=== PATIENT | male | born 1945 | race Caucasian/White ===

== ENCOUNTER 2017-11-06 12:22 | Outpatient (CLI) | payer MEDICARE, BC ==
--- NOTE | 2017-11-06 17:06 | MRI Report ---
Procedure Date: 11/06/2017 Accession Number: [id number] / [id number] Procedure: MRI - Lumbar Spine W/O CPT Code: FULL RESULT: EXAM: MRI LUMBAR SPINE WITHOUT CONTRAST. EXAM DATE: 11/06/2017 01:21 PM. CLINICAL HISTORY: Radiculopathy, lumbar region, pain in left foot. COMPARISON: None. TECHNIQUE: Multiplanar, multisequence T1-weighted and fluid-sensitive sequences of the lumbar spine from T11 to S1 without contrast. Other: None. FINDINGS: Alignment: 26 degrees convex left scoliosis centered at L2. 3 mm retrolisthesis at L1 on L2 and L2 on L3. Spinal Canal: The conus terminates at T12-L1. The conus medullaris and cauda equina are unremarkable. Bone Marrow: Five [id number] lumbar vertebral bodies are assumed. Mild superior endplate fracture and L4, asymmetric to the left with mild anterior and left lateral height loss. No bone marrow edema at this site. No acute fracture. Moderate fatty endplate changes at L5-S1. Mild fatty endplate changes at L2-L3. Disk Levels/Facets: Disk desiccation throughout. Moderate to severe disk height loss at L2-L3, asymmetric to the right and L5-S1 asymmetric to the left. T10-T11: Sagittal images only. Minimal disk bulge. Moderate left facet hypertrophy. Minimal central canal stenosis. Moderate left neural foramen stenosis. T11-T12: Sagittal images only. Minimal disk bulge. Mild bilateral facet hypertrophy. Moderate left neural foramen stenosis. T12-L1: Sagittal images only. Mild bilateral facet hypertrophy. No stenosis. L1-L2: Sagittal images only. Minimal disk osteophyte complex. Mild bilateral facet hypertrophy. Mild bilateral neural foramen stenosis. L2-L3: Small bilobed disk osteophyte complex extending into the neural foramen with superimposed small right paracentral and foraminal disk protrusion. Mild bilateral facet and ligamentum flavum hypertrophy. Prominent epidural fat contributes to mild to moderate central canal stenosis. Disk protrusion results in mass effect on the traversing right L3 and L4 nerve roots. Mild bilateral neural foramen stenosis. L3-L4: Small to moderate broad-based disk osteophyte complex extending into the bilateral neural foramen. Severe bilateral facet and ligamentum flavum hypertrophy. Prominent epidural fat contributes to moderate central canal stenosis. Moderate to severe right and moderate left neural foramen stenosis. L4-L5: Small broad-based disk bulge, asymmetric to the left. Severe right and moderate left facet and ligamentum flavum hypertrophy. Prominent epidural fat contributes to mild central canal stenosis. Mild bilateral neural foramen stenosis. L5-S1: Small broad-based disk osteophyte complex, asymmetric to the left. Mild right and moderate left facet and ligamentum flavum hypertrophy. Moderate left neural foramen stenosis. Musculature: Mild fatty atrophy in the posterior paraspinous musculature. No focal muscle edema. Other: The partially visualized retroperitoneum is unremarkable. Degenerative changes at the partially visualized sacral iliac joints, left greater than right. IMPRESSION: 1. Moderate convex left scoliosis centered at L2. 2. Minimal grade 1 retrolisthesis at L1 on L2 and L2 on L3. 3. Moderate to severe degenerative disk and facet changes. 4. Disk osteophyte complex, facet hypertrophy, and prominent epidural fat at L3-L4 result in moderate central canal stenosis. 5. Disk osteophyte complex, right paracentral and foraminal protrusion, facet hypertrophy and prominent epidural fat at L2-L3 result in tfhe-fc-frafubry central canal stenosis. Disk protrusion results in mass effect on the traversing right L3 and L4 nerve roots. 6. Disk osteophyte complex, facet hypertrophy, and prominent epidural fat at L4-L5 result in mild central canal stenosis. 7. Varying degrees of neural foramen stenosis, moderate to severe at L3-L4 on the right. Moderate stenosis at L3-L4 on the left L5-S1 on the left. Comment: The following findings are so common in adults without low back pain that while we report their presence, they must be interpreted with caution and in the context of the clinical situation. (Reference Negrak et al, Spine 2001) Prevalence of findings in patients without low back pain: Disk degeneration (any evidence): 92% Disk desiccation/T2 signal loss: 83% Disk height loss: 56% Disk bulge: 64% Disk protrusion: 32% Annular tear/high intensity zone: 38% RAD[facility]
--- NOTE | 2017-11-08 15:31 | MRI Report ---
Procedure Date: 11/06/2017 Accession Number: [id number] / [id number] Procedure: MRI - Foot LT W/O CPT Code: FULL RESULT: EXAM: LEFT ANKLE/HINDFOOT MRI WITHOUT CONTRAST EXAM DATE: 11/06/2017 02:13 PM. CLINICAL HISTORY: Radiculopathy, lumbar region. Pain in left foot. COMPARISON: None. TECHNIQUE: Multiplanar, multisequence T1-weighted and fluid-sensitive sequences of the ankle/hindfoot without contrast. Other: None. FINDINGS: Bones: No acute fracture. Two old ununited fracture fragments at the anterior and distal aspect of the fibular tip measuring 1.6 cm each in diameter. Old subtle fracture fragments at the tip of the medial malleolus. Mild reactive edema in the medial and lateral aspects distal tibia. Mild bone marrow edema and reactive cysts at the angle of [place] and anterior process of the calcaneus extending to the articular surface with the cuboid. Articular Cartilage: Small regions of deep partial to full-thickness loss anteromedial aspects tibial plafond and medial margin of the talar dome. Ligaments: Old sprain and partial-thickness tearing at the anterior tibiofibular ligament. Posterior talofibular ligament intact. No discernible intact fibers at the anterior talofibular ligament where there are multiple ossific fragments. Posterior talofibular and calcaneofibular ligaments intact. Mild edema and distortion in the superficial and deep bands of the deltoid ligament. Mild thickening of the spring ligament. Anterior Tendons: The tibialis anterior, extensor hallucis longus, and extensor digitorum longus tendons are unremarkable. Medial Tendons: The tibialis posterior, flexor digitorum longus, and flexor hallucis longus tendons are unremarkable. Lateral Tendons: Mild thickening of the peroneus longus tendon with edema and distortion in the central substance of the fibers distal to the peroneal tubercle of the calcaneus. Minimal thickening of the peroneus brevis tendon without discrete tear. Achilles Tendon: Minimal thickening without discrete tear. Musculature: Mild to moderate fatty atrophy throughout the musculature. Subtle edema throughout the musculature. A component of this is likely neurogenic. Other: Small tibiotalar and subtalar joint effusions. 1.8 cm multilobulated ganglion at the lateral margin talonavicular joint. Mild edema in the sinus tarsi. 1.4 cm lobulated ganglion along the medial aspect of the calcaneus. This may abut the neurovascular bundle of the sinus tarsi. Moderate thickening at the central band of the plantar fascia. Mild subcutaneous edema over the medial and lateral malleoli extending over the dorsal and lateral aspect of the midfoot. IMPRESSION: 1. No acute osseous abnormality. 2. 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 3. Sequelae of old medial and lateral ligamentous injury including full-thickness disruption anterior talofibular ligament. 4. Mild peroneus longus tendinopathy with possible subtle intrasubstance tear just distal to the peroneal tubercle. 5. Minimal peroneus brevis tendinopathy. 6. Minimal Achilles tendinopathy. 7. Ywxg-hs-ayqysxcm degenerative change tibiotalar joint with regions of full-thickness cartilage loss at the medial aspect. 8. Small tibiotalar and subtalar joint effusions. [facility] MUSCULOSKELETAL RADIOLOGY SECTION
== END 2017-11-06 12:23 | disposition home or self-care (01) ==
LOC: DI 12:22
PROVIDERS: ATTEND Family Medicine
DX: S82.832K Other fracture of upper and lower end of left fibula, subsequent encounter for closed fracture with nonunion (principal); S93.492A Sprain of other ligament of left ankle, initial encounter; M19.072 Primary osteoarthritis, left ankle and foot; M25.472 Effusion, left ankle; M67.972 Unspecified disorder of synovium and tendon, left ankle and foot
CPT/HCPCS: 72148

== ENCOUNTER 2018-02-18 09:40 | Outpatient (CLI) | payer MEDICARE, BC | END 2018-02-18 09:41 | disposition home or self-care (01) | LOC: LAB 09:40 | PROVIDERS: ATTEND Orthopaedic Surgery | DX: M76.72 Peroneal tendinitis, left leg (principal); S82.62XK Displaced fracture of lateral malleolus of left fibula, subsequent encounter for closed fracture with nonunion; M19.172 Post-traumatic osteoarthritis, left ankle and foot; M25.872 Other specified joint disorders, left ankle and foot | CPT/HCPCS: 87640 ==

== ENCOUNTER 2019-06-25 23:19 | Emergency (ER) | payer MEDICARE, OTHER ==
[2019-06-26 00:37] LABS: BASOPHILS # (AUTO) 0.1 10^3/uL (0.0-0.1); BASOPHILS % (AUTO) 0.9 %; EOSINOPHILS # (AUTO) 0.3 10^3/uL (0.0-0.7); EOSINOPHILS % (AUTO) 3.7 %; HGB - HEMOGLOBIN 14.7 g/dL (14.0-18.0); LYMPHOCYTES # (AUTO) 3.1 10^3/uL (1.5-3.5); LYMPHOCYTES % (AUTO) 39.3 %; MEAN CORPUSCULAR HEMOGLOBIN 30.1 pg (27.0-31.0); MEAN CORPUSCULAR VOLUME 94.3 fL (80.0-94.0); MONOCYTES # (AUTO) 0.7 10^3/uL (0.0-1.0); MONOCYTES % (AUTO) 8.3 %; NEUTROPHILS # (AUTO) 3.7 10^3/uL (1.5-6.6); NEUTROPHILS % (AUTO) 47.5 %; PLT - PLATELET COUNT 210 10^3/uL (130-450); RED BLOOD COUNT 4.88 10^6/uL (4.70-6.10); RED CELL DISTRIBUTION WIDTH 12.7 % (12.0-15.0); WHITE BLOOD COUNT 7.8 x10^3/uL (4.8-10.8)
[2019-06-26 00:42] LABS: INR 2.3 (0.8-1.2); PT - PROTHROMBIN TIME 25.4 secs (9.9-12.6)
[2019-06-26 00:49] LABS: ALBUMIN 3.9 g/dL (3.2-5.5); ALBUMIN/GLOBULIN RATIO 1.6 (1.0-2.2); BILIRUBIN,TOTAL 0.7 mg/dL (0.2-1.0); PARTIAL THROMBOPLASTIN TIME 41.4 secs (24.9-33.3); TOTAL PROTEIN 6.3 g/dL (6.7-8.2)
--- NOTE | 2019-06-26 01:07 | ED Physician Documentation ---
PD HPI HEENT - Stated complaint Stated Complaint: NOSEBLEED - Chief complaint Chief Complaint: Heent - History obtained from History obtained from: Patient - History of Present Illness Timing - onset: Enter time (21:00), Today Timing - details: Abrupt onset Location: Nose Improves: Nothing Similar symptoms before: Has not had sx before Recently seen: Not recently seen - Additional information Additional information: right nare epistaxis, sudden onset, atraumatic, 9 PM tonight at home at rest. on coumadin Review of Systems Nose: reports: Epistaxis. denies: Rhinorrhea / runny nose, Congestion PD PAST MEDICAL HISTORY - Past Medical History Past Medical History: Yes Cardiovascular: Hypertension, High cholesterol, Coronary artery disease, Pulmonary embolism Endocrine/Autoimmune: Type 2 diabetes - Past Surgical History Past Surgical History: Yes Ortho: Rotator cuff repair, Other Cardiovascular: Coronary stent HEENT: Tonsil/Adenoidectomy, Other - Present Medications Home Medications: Ambulatory Orders Medication Instructions Recorded Confirmed Atorvastatin Calcium 40 mg PO DAILY 09/28/17 06/26/19 Cholecalciferol (Vitamin D3) 1 tab PO DAILY 09/28/17 06/26/19 [Vitamin D3] Dulaglutide [Trulicity] 1.5 mg SQ Q7D 09/28/17 06/26/19 Furosemide 40 mg PO DAILY 09/28/17 06/26/19 Insulin Glargine,Hum.rec.anlog 50 unit SUBQ QDBREAKFAST 09/28/17 06/26/19 [Toujeo Solostar] Isosorbide Dinitrate 30 mg PO BID 09/28/17 06/26/19 Metformin HCl [Metformin HCl ER] 2,000 mg PO QDDINNER 09/28/17 06/26/19 Metoprolol Tartrate 50 mg PO DAILY 09/28/17 06/26/19 Omeprazole 20 mg PO DAILY 09/28/17 06/26/19 Insulin Aspart [NovoLOG] 5 - 20 unit SUBQ TIDWM 05/14/18 06/26/19 Warfarin Sodium 5 mg PO DAILY 06/26/19 06/26/19 - Allergies Allergies/Adverse Reactions: Allergies Allergy/AdvReac Type Severity Reaction Status Date / Time codeine Allergy Unknown Verified 06/25/19 23:26 - Social History Does the pt smoke?: No Smoking Status: Never smoker Does the pt drink ETOH?: No Does the pt have substance abuse?: No - Immunizations Immunizations are current?: Yes - POLST Patient has POLST: No PD ED PE NORMAL - Vitals Vital signs reviewed: Yes - General General: Alert and oriented X 3, No acute distress, Well developed/nourished - HEENT HEENT: Pharynx benign PD ED PE EXPANDED - HEENT HEENT: Other (left nare with trace dried blood, no active bleeding. right nare with fresh, small clot, no active bleeding. there is a punctate raised vessel anterior septum suspicious as source of bleeding) Results - Vitals Vitals: Oxygen O2 Source Room air - Labs Labs: Laboratory Tests 06/26/19 06/26/19 06/26/19 00:31 00:31 00:31 WBC 7.8 RBC 4.88 Hgb 14.7 Hct 46.0 MCV 94.3 H MCH 30.1 MCHC 32.0 RDW 12.7 Plt Count 210 MPV 10.0 Neut # (Auto) 3.7 Lymph # (Auto) 3.1 [place] # (Auto) 0.7 Eos # (Auto) 0.3 Baso # (Auto) 0.1 Absolute Nucleated RBC 0.00 Nucleated RBC % 0.0 PT 25.4 H INR 2.3 H APTT 41.4 H Sodium 137 Potassium 3.6 Chloride 105 Carbon Dioxide 24 Anion Gap 8.0 BUN 14 Creatinine 1.0 Estimated GFR (MDRD) 73 L Glucose 338 H Calcium 9.0 Total Bilirubin 0.7 AST 16 ALT 13 Alkaline Phosphatase 76 Total Protein 6.3 L Albumin 3.9 Globulin 2.4 Albumin/Globulin Ratio 1.6 Lipase 40 Procedures - Epistaxis Site: Right Preparation: Clots removed, Afrin, Lidocaine, Clamp / pressure applied Treatment: Silver Nitrate, Anterior rhinorocket Other: Observed - no bleeding, Pt tolerated well PD MEDICAL DECISION MAKING - ED course Complexity details: considered differential, d/w patient ED course: no active bleeding, but likely source noted right nare septum. given that he is on coumadin and had already tried direct pressure prior to arrival without lasting hemostasis, I recommended cautery and patient agrees. unfortunately, cautery immediately caused vessel to rebleed and further attempts did not achieve hemostasis. packed with 4.5c rhinorocket with good hemostasis Departure - Departure Disposition: 01 Home, Self Care Clinical Impression: Epistaxis Condition: Good Instructions: ED Nosebleed, ED Nasal Packing Anterior Removable Follow-Up: Thomas Roger DO [Primary Care Provider] - Discharge Date/Time: 06/26/19 04:20
[2019-06-26] MEDS ORDERED: LIDOCAINE VISCOUS 2% 15 ML UDC MM STA (01:26)
[2019-06-26] MEDS ORDERED: OXYMETAZOLINE HCL 100 SPRAYS BOTTLE NAS STA (01:27)
[2019-06-26 03:55] VITALS: BP 165/78
== END 2019-06-26 04:20 | disposition home or self-care (01) ==
LOC: ED 23:19
DX: R04.0 Epistaxis (principal); I10 Essential (primary) hypertension; E11.9 Type 2 diabetes mellitus without complications; E78.00 Pure hypercholesterolemia, unspecified; I25.10 Atherosclerotic heart disease of native coronary artery without angina pectoris; Z86.711 Personal history of pulmonary embolism; Z95.5 Presence of coronary angioplasty implant and graft
CPT/HCPCS: 30901; 36415; 80053; 83690; 85025; 85610; 85730; 99283; A9270

== ENCOUNTER 2021-05-22 08:00 | Outpatient (CLI) | payer MEDICARE, OTHER ==
--- NOTE | 2021-05-22 18:15 | XRAY Report ---
PROCEDURE: Elbow 3 View LT INDICATIONS: OLECRANON BURSITIS TECHNIQUE: 3 views of the elbow were acquired. COMPARISON: None FINDINGS: Bones: No fractures or dislocations. No suspicious bony lesions. No bony erosive changes. Soft tissues: No elbow joint effusion. No suspicious soft tissue calcifications. Dorsal elbow soft tissue swelling is seen which may represent olecranon bursitis. IMPRESSION: No elbow fracture or dislocation. No joint effusion. Dorsal soft tissue swelling over olecranon, olec ranon bursitis is suspected. No bony erosive changes. Reviewed by: Edmund Wise MD on 05/22/2021 6:13 PM PST Approved by: Edmund Wise MD on 05/22/2021 6:13 PM [facility] Station ID: [id number]
== END 2021-05-22 23:59 | disposition home or self-care (01) ==
LOC: DI.S 08:00
PROVIDERS: ATTEND Emergency Medicine
DX: R93.6 Abnormal findings on diagnostic imaging of limbs (principal); R93.89 Abnormal findings on diagnostic imaging of other specified body structures

== ENCOUNTER 2022-11-28 12:53 | Emergency (ER) | payer MEDICARE, OTHER ==
[2022-11-28 13:08] VITALS: O2SAT 95
[2022-11-28 13:24] LABS: BASOPHILS # (AUTO) 0.1 10^3/uL (0.0-0.1); BASOPHILS % (AUTO) 0.7 %; EOSINOPHILS # (AUTO) 0.1 10^3/uL (0.0-0.7); EOSINOPHILS % (AUTO) 1.4 %; HCT - HEMATOCRIT 44.9 % (42.0-52.0); HGB - HEMOGLOBIN 14.8 g/dL (14.0-18.0); LYMPHOCYTES # (AUTO) 1.9 10^3/uL (1.5-3.5); MEAN CORPUSCULAR HEMOGLOBIN 31.4 pg (27.0-31.0); MEAN CORPUSCULAR VOLUME 95.1 fL (80.0-94.0); MEAN PLATELET VOLUME 9.9 fL (7.4-11.4); MONOCYTES # (AUTO) 1.1 10^3/uL (0.0-1.0); MONOCYTES % (AUTO) 11.2 %; NEUTROPHILS # (AUTO) 6.7 10^3/uL (1.5-6.6); NEUTROPHILS % (AUTO) 67.5 %; PLT - PLATELET COUNT 250 10^3/uL (130-450); RED BLOOD COUNT 4.72 10^6/uL (4.70-6.10); RED CELL DISTRIBUTION WIDTH 12.1 % (12.0-15.0); WHITE BLOOD COUNT 9.9 x10^3/uL (4.8-10.8)
[2022-11-28 13:32] LABS: INR 1.2 (0.8-1.2); PT - PROTHROMBIN TIME 13.2 secs (9.9-12.6)
[2022-11-28] MEDS ORDERED: SODIUM CHLORIDE 0.9% 1,000 ML IV STA (13:42)
--- NOTE | 2022-11-28 13:43 | XRAY Report ---
PROCEDURE: Chest 2 View X-Ray INDICATIONS: cough TECHNIQUE: 2 views of the chest were acquired. COMPARISON: None. FINDINGS: Surgical changes and devices: None. Lungs and pleura: No pleural effusions or pneumothorax. Lungs are slightly abnormal with a mild int erstitial prominence. No definite pneumonia found.. Mediastinum: Mediastinal contours appear normal. Heart size is normal. Bones and chest wall: No suspicious bony lesions. Overlying soft tissues appear unremarkable. Moder ate convex rightward scoliosis centered at the middle third of the thoracic spine, which appears assistant media buyer italo. IMPRESSION: No acute cardiopulmonary process. Mild chronic interstitial prominence. Reviewed by: Peterson Yanez MD on 11/28/2022 1:41 PM PDT Approved by: Peterson Yanez MD on 11/28/2022 1:41 PM PDT Station ID: [id number]
--- NOTE | 2022-11-28 13:43 | ED Physician Documentation ---
History of Present Illness - Stated complaint Stated Complaint: COLD/FEVER - Chief complaint Chief Complaint: General - History obtained from History obtained from: Patient, Family - Additonal information Additional information: 77-year-old gentleman with type 2 diabetes, coronary disease with multiple stents, history of pulmonary emboli on Eliquis presents with a URI for the last week. Its associated with prominent green nasal drainage and sinus pain, productive cough, and redness and drainage from the right eye. Multiple sick contacts in the family. Low-grade fever to 100 yesterday. PD PAST MEDICAL HISTORY - Past Medical History Cardiovascular: Hypertension, High cholesterol, Coronary artery disease, Pulmonary embolism Endocrine/Autoimmune: Type 2 diabetes - Past Surgical History Past Surgical History: Yes Ortho: Rotator cuff repair, Other Cardiovascular: Coronary stent HEENT: Tonsil/Adenoidectomy, Other - Present Medications Home Medications: Ambulatory Orders Medication Instructions Recorded Confirmed Atorvastatin Calcium 40 mg PO DAILY 09/28/17 06/26/19 Cholecalciferol (Vitamin D3) 1 tab PO DAILY 09/28/17 06/26/19 [Vitamin D3] Dulaglutide [Trulicity] 1.5 mg SQ Q7D 09/28/17 06/26/19 Furosemide 40 mg PO DAILY 09/28/17 06/26/19 Insulin Glargine,Hum.rec.anlog 50 unit SUBQ QDBREAKFAST 09/28/17 06/26/19 [Touerna Solostar] Isosorbide Dinitrate 30 mg PO BID 09/28/17 06/26/19 Metformin HCl [Metformin HCl ER] 2,000 mg PO QDDINNER 09/28/17 06/26/19 Metoprolol Tartrate 50 mg PO DAILY 09/28/17 06/26/19 Omeprazole 20 mg PO DAILY 09/28/17 06/26/19 Insulin Aspart [NovoLOG] 5 - 20 unit SUBQ TIDWM 05/14/18 06/26/19 Warfarin Sodium 5 mg PO DAILY 06/26/19 06/26/19 Amox/Clav 875/125 [Augmentin] 1 each PO Q12H #20 tablet 11/28/22 Erythromycin Base [Erythromycin 1 appful OP 5XD 7 Days #1 gm 11/28/22 Ophthalmic Ointment] - Allergies Allergies/Adverse Reactions: Allergies Allergy/AdvReac Type Severity Reaction Status Date / Time codeine Allergy Unknown Verified 06/25/19 23:26 - Social History Does the pt smoke?: No Smoking Status: Never smoker Does the pt drink ETOH?: No Does the pt have substance abuse?: No - Immunizations Immunizations are current?: Yes - POLST Patient has POLST: No PD ED PE NORMAL - Vitals Vital signs reviewed: Yes - General General: Alert and oriented X 3, No acute distress - HEENT HEENT: PERRL, EOMI, Other (Mild purulent conjunctivitis of the right eye, TMs and oropharynx normal status post PPP surgery) - Neck Neck: Supple, no meningeal sign, No bony TTP - Cardiac Cardiac: RRR, No murmur - Respiratory Respiratory: No respiratory distress, Clear bilaterally - Abdomen Abdomen: Non tender - Derm Derm: Normal color, Warm and dry - Neuro Neuro: Alert and oriented X 3, Normal speech Results - Vitals Vitals: Vital Signs - 24 hr 11/28/22 11/28/22 12:57 13:56 Temperature 36.5 C Heart Rate 64 67 Respiratory 20 20 Rate Blood Pressure 187/76 H 161/140 H O2 Saturation 95 95 Oxygen O2 Source Room air - Labs Labs: Laboratory Tests 11/28/22 11/28/22 11/28/22 13:13 13:13 13:13 WBC 9.9 RBC 4.72 Hgb 14.8 Hct 44.9 MCV 95.1 H MCH 31.4 H MCHC 33.0 RDW 12.1 Plt Count 250 MPV 9.9 Neut # (Auto) 6.7 H Lymph # (Auto) 1.9 [place] # (Auto) 1.1 H Eos # (Auto) 0.1 Baso # (Auto) 0.1 Absolute Nucleated RBC 0.00 Nucleated RBC % 0.0 PT 13.2 H INR 1.2 Sodium 137 Potassium 4.4 Chloride 102 Carbon Dioxide 30 Anion Gap 5.0 L BUN 12 Creatinine 0.9 Estimated GFR (MDRD) 82 L Glucose 190 H Calcium 9.6 Nasal Adenovirus (PCR) Nasal B. parapertussis DNA (PCR) Nasal Coronavir 229E PCR Nasal Coronavir HKU1 PCR Nasal Coronavir NL63 PCR Nasal Coronavir OC43 PCR Nasal Enterovir/Rhinovir PCR Nasal Influenza B PCR Nasal Influenza A PCR Nasal Parainfluen 1 PCR Nasal Parainfluen 2 PCR Nasal Parainfluen 3 PCR Nasal Parainfluen 4 PCR Nasal RSV (PCR) Nasal B.pertussis DNA PCR Nasal C.pneumoniae (PCR) Tim Human Metapneumo PCR Nasal M.pneumoniae (PCR) Nasal SARS-CoV-2 (PCR) 11/28/22 13:15 WBC RBC Hgb Hct MCV MCH MCHC RDW Plt Count MPV Neut # (Auto) Lymph # (Auto) [place] # (Auto) Eos # (Auto) Baso # (Auto) Absolute Nucleated RBC Nucleated RBC % PT INR Sodium Potassium Chloride Carbon Dioxide Anion Gap BUN Creatinine Estimated GFR (MDRD) Glucose Calcium Nasal Adenovirus (PCR) NOT DETECTED Nasal B. parapertussis DNA (PCR) NOT DETECTED Nasal Coronavir 229E PCR NOT DETECTED Nasal Coronavir HKU1 PCR NOT DETECTED Nasal Coronavir NL63 PCR NOT DETECTED Nasal Coronavir OC43 PCR NOT DETECTED Nasal Enterovir/Rhinovir PCR NOT DETECTED Nasal Influenza B PCR NOT DETECTED Nasal Influenza A PCR NOT DETECTED Nasal Parainfluen 1 PCR NOT DETECTED Nasal Parainfluen 2 PCR NOT DETECTED Nasal Parainfluen 3 PCR NOT DETECTED Nasal Parainfluen 4 PCR NOT DETECTED Nasal RSV (PCR) NOT DETECTED Nasal B.pertussis DNA PCR NOT DETECTED Nasal C.pneumoniae (PCR) NOT DETECTED Tim Human Metapneumo PCR NOT DETECTED Nasal M.pneumoniae (PCR) NOT DETECTED Nasal SARS-CoV-2 (PCR) NOT DETECTED - Rads (name of study) 2 view chest x-ray demonstrates mild chronic interstitial prominence without acute disease. Relevant Findings:: Final report received, EMP independent interpretation of test PD Medical Decision Making - ED course ED course: 77-year-old gentleman with what sounds like prominently of viral illness but worsening with multiple comorbidities. CBC showing high normal white count with mild left shift. INR normal. BMP normal save for hyperglycemia. Given age and comorbidities seems reasonable to treat with antibiotics for sinusitis/conjunctivitis. He requested and received 1 L of IV fluids. Departure - Departure Disposition: 01 Home, Self Care Clinical Impression: Sinusitis Qualifiers: Sinusitis location: maxillary Chronicity: acute Recurrence: not specified as recurrent Qualified Code(s): J01.00 - Acute maxillary sinusitis, unspecified Conjunctivitis Qualifiers: Conjunctivitis type: acute Acute conjunctivitis type: unspecified Laterality: right Qualified Code(s): H10.31 - Unspecified acute conjunctivitis, right eye Condition: Good Record reviewed to determine appropriate education?: Yes Instructions: ED Sinusitis Abx Tx Prescriptions: Amox/Clav 875/125 [Augmentin] 1 each PO Q12H #20 tablet Erythromycin Base [Erythromycin Ophthalmic Ointment] 1 appful OP 5XD 7 Days #1 gm Comments: I sent your prescriptions electronically to [facility] in [place]. Follow-up with your doctor after the weekend if not improving, return for new or worsening symptoms.
[2022-11-28 13:57] VITALS: BP 161/140
[2022-11-28 14:00] LABS: CALCIUM 9.6 mg/dL (8.5-10.3); CREATININE 0.9 mg/dL (0.6-1.3); POTASSIUM 4.4 mmol/L (3.5-4.5)
[2022-11-28 14:08] LABS: B. PARAPERTUSSIS- RESP PCR PAN NOT DETECTED; B. PERTUSSIS- RESP PCR PANEL NOT DETECTED; C. PNEUMONIAE- RESP PCR PANEL NOT DETECTED; CORONAVIRUS 229E-RESP PCR NOT DETECTED; CORONAVIRUS HKU1-RESP PCR NOT DETECTED; CORONAVIRUS NL63-RESP PCR NOT DETECTED; CORONAVIRUS OC43-RESP PCR NOT DETECTED; HUMAN METAPNEUMOVIRUS NOT DETECTED; INFLUENZA A- RESP PCR PANEL NOT DETECTED; INFLUENZA B - RESP PCR PANEL NOT DETECTED; M. PNEUMONIAE- RESP PCR PANEL NOT DETECTED; PARAINFLUENZA VIRUS 1 NOT DETECTED; PARAINFLUENZA VIRUS 2 NOT DETECTED; PARAINFLUENZA VIRUS 3 NOT DETECTED; PARAINFLUENZA VIRUS 4 NOT DETECTED; RHINOVIRUS/ENTEROVIRUS NOT DETECTED; RSV- RESP PCR PANEL NOT DETECTED; SARS-CoV-2 -RESP PCR PANEL NOT DETECTED
== END 2022-11-28 14:57 | disposition home or self-care (01) ==
LOC: ED 12:53
DX: J01.00 Acute maxillary sinusitis, unspecified (principal); H10.31 Unspecified acute conjunctivitis, right eye; I10 Essential (primary) hypertension; Z86.711 Personal history of pulmonary embolism; Z79.01 Long term (current) use of anticoagulants
CPT/HCPCS: 36415; 80048; 85025; 85610; 87633; 99284

== ENCOUNTER 2022-12-14 16:35 | Emergency (ER) | payer MEDICARE, OTHER ==
--- NOTE | 2022-12-14 17:00 | ED Physician Documentation ---
PD HPI URI - Stated complaint Stated Complaint: C+ SOA/DIZZY - Chief complaint Chief Complaint: Resp - History obtained from History obtained from: Patient - History of Present Illness Timing - onset: How many days ago (2) Timing duration: Days (2-3) Timing details: Abrupt onset, Still present Associated symptoms: Fever, Chills, Nasal congestion, Dry cough, Dyspnea. No: NVD, Bilateral edema Contributing factors: No: Sick contact (was not aware of being around sick folk. Tested himself for COVID this morning and was positive. His is starting sick the past day as well, and has COVID.) Worsened by: Activity (more dyspnea with activity.) Similar symptoms before: Has not had sx before Recently seen: Not recently seen Review of Systems Constitutional: reports: Fever, Chills, Myalgias Nose: reports: Congestion Throat: reports: Sore throat Cardiac: denies: Chest pain / pressure, Palpitations, Pedal edema Respiratory: reports: Dyspnea, Cough GI: denies: Abdominal Pain, Vomiting, Diarrhea Skin: denies: Rash Neurologic: denies: Altered mental status, Headache PD PAST MEDICAL HISTORY - Past Medical History Cardiovascular: Hypertension, High cholesterol, Coronary artery disease, Pulmonary embolism Endocrine/Autoimmune: Type 2 diabetes - Past Surgical History Past Surgical History: Yes Ortho: Rotator cuff repair, Other Cardiovascular: Coronary stent HEENT: Tonsil/Adenoidectomy, Other - Present Medications Home Medications: Ambulatory Orders Medication Instructions Recorded Confirmed Atorvastatin Calcium 40 mg PO DAILY 09/28/17 06/26/19 Cholecalciferol (Vitamin D3) 1 tab PO DAILY 09/28/17 06/26/19 [Vitamin D3] Dulaglutide [Trulicity] 1.5 mg SQ Q7D 09/28/17 06/26/19 Furosemide 40 mg PO DAILY 09/28/17 06/26/19 Insulin Glargine,Hum.rec.anlog 50 unit SUBQ QDBREAKFAST 09/28/17 06/26/19 [Clarissa Todd] Isosorbide Dinitrate 30 mg PO BID 09/28/17 06/26/19 Metformin HCl [Metformin HCl ER] 2,000 mg PO QDDINNER 09/28/17 06/26/19 Metoprolol Tartrate 50 mg PO DAILY 06/11/18 03/08/20 Omeprazole 20 mg PO DAILY 09/28/17 06/26/19 Insulin Aspart [NovoLOG] 5 - 20 unit SUBQ TIDWM 05/14/18 06/26/19 Warfarin Sodium 5 mg PO DAILY 06/26/19 06/26/19 Amox/Clav 875/125 [Augmentin] 1 each PO Q12H #20 tablet 11/28/22 Erythromycin Base [Erythromycin 1 appful OP 5XD 7 Days #1 gm 11/28/22 Ophthalmic Ointment] - Allergies Allergies/Adverse Reactions: Allergies Allergy/AdvReac Type Severity Reaction Status Date / Time codeine Allergy Unknown Verified 12/14/22 16:46 - Social History Does the pt smoke?: No Smoking Status: Never smoker Does the pt drink ETOH?: No Does the pt have substance abuse?: No - Immunizations Immunizations are current?: Yes - POLST Patient has POLST: No PD ED PE NORMAL - Vitals Vital signs reviewed: Yes - General General: Alert and oriented X 3, No acute distress, Well developed/nourished - HEENT HEENT: Ears normal, Moist mucous membranes, Pharynx benign - Neck Neck: Supple, no meningeal sign, No adenopathy - Cardiac Cardiac: RRR, No murmur - Respiratory Respiratory: No: Clear bilaterally (some exp wheezing centrally, but no coarse sounds. ) - Abdomen Abdomen: Soft, Non tender - Extremities Extremities: No edema, No calf tenderness / cord - Neuro Neuro: Alert and oriented X 3, No motor deficit, No sensory deficit Results - Vitals Vitals: Vital Signs - 24 hr 12/14/22 12/14/22 16:46 17:55 Temperature 36.8 C 36.6 C Heart Rate 64 62 Respiratory 20 18 Rate Blood Pressure 194/69 H 150/70 H O2 Saturation 95 96 Oxygen O2 Source Room air PD Medical Decision Making - ED course Complexity details: considered differential (URI symptoms and tested at home positive for COVID. Requests Paxlovid. Has albuterol MDI from prior URI. His med list looks like just the atorvastatin needs holding. ), d/w patient ED course: comorbidities of CAD with stents, last about 4 months ago. Has no other stenoses greater than 50% per pt/. Has not had anginal symptoms. No edema/CHF. Does not have undelrying lung disease. Diabetic with good control. CUrrent CGM reading is 132 in ER. Sats are 95%. He is good for outpt treatment. Departure - Departure Disposition: 01 Home, Self Care Clinical Impression: Dyspnea, COVID-19 Condition: Stable Record reviewed to determine appropriate education?: Yes Follow-Up: Thomas Roger DO [Primary Care Provider] - Comments: Takes the Paxlovid twice daily as directed. It is 3 antiviral tablets per dose twice daily for 5 days. Hold your atorvastatin for 10 days. Your other medication should be okay to continue. Stay well-hydrated. You can use the albuterol inhaler you have at home 2 puffs 4 times daily to help with decreased cough and improved breathing. Return if worsening trouble breathing, chest pain, general edema or other concerns. Tylenol if needed for fevers or pains. Forms: PCP List Discharge Date/Time: 12/14/22 17:55
[2022-12-14] MEDS ORDERED: NIRMATRELVIR/RITONAVIR PREPACK PO STA (17:31)
[2022-12-14 18:01] VITALS: BP 150/70; O2SAT 96
== END 2022-12-14 17:55 | disposition home or self-care (01) ==
LOC: ED 16:35
DX: U07.1 COVID-19 (principal); R06.09 Other forms of dyspnea; I10 Essential (primary) hypertension; E11.9 Type 2 diabetes mellitus without complications; Z79.4 Long term (current) use of insulin
CPT/HCPCS: 99282; 99283; J3490

== ENCOUNTER 2023-01-05 08:45 | Outpatient (CLI) | payer MEDICARE, OTHER | END 2023-01-05 20:00 | disposition critical access hospital (66) | LOC: EMS 08:45 | DX: R20.0 Anesthesia of skin (principal) | CPT/HCPCS: A0425; A0429 ==

== ENCOUNTER 2023-01-05 08:58 | Emergency (ER) | payer MEDICARE, OTHER ==
--- NOTE | 2023-01-05 09:22 | ED Physician Documentation ---
PD HPI FOCAL NEURO - Stated complaint Stated Complaint: R SIDED FACIAL NUMBNESS - Chief complaint Chief Complaint: Neuro - History obtained from History obtained from: Patient, Family (spouse) - History of Present Illness Timing - onset: Today (got up from bed and was in bathroom and noted feeling of numbness right face and arm. Not leg. No weakness. Able to manipulte brushing teeth, walking. No noted fumbling nor gait problem. Talked with his and when it did not improve after an hour or so, came to ER. It is improving enroute here.) Timing - duration: Hours Timing - details: Now resolved (was improving enroute to ER and is resolved in arm and mostly in face on arrival. Soon after my eval, he states the face is normal as well.), Other (unknown onset time. Was not present last evening. Noted symptoms upon awakening. He could not say of numbness present upon awakening.) Severity of deficit: Mild Weakness: No: Face, Arm, Leg Numbness: Face, Arm, Hand, Right. No: Leg, Foot Associated symptoms: No: Headache, Nausea / vomiting, Fever Contributing factors: positive: Anticoagulated. negative: Vascular dz Baseline status: positive: A&OX3, ambulatory, indep Similar symptoms before: Has not had sx before Review of Systems Constitutional: denies: Fever, Chills, Myalgias Nose: denies: Rhinorrhea / runny nose, Congestion Throat: denies: Sore throat Cardiac: denies: Chest pain / pressure Respiratory: denies: Cough GI: denies: Abdominal Pain, Nausea, Vomiting, Diarrhea Skin: denies: Rash, Lesions Musculoskeletal: denies: Neck pain, Back pain Neurologic: reports: Numbness. denies: Focal weakness, Near syncope, Altered mental status PD PAST MEDICAL HISTORY - Past Medical History Cardiovascular: Hypertension, High cholesterol, Coronary artery disease, Pulmonary embolism Endocrine/Autoimmune: Type 2 diabetes - Past Surgical History Past Surgical History: Yes Ortho: Rotator cuff repair, Other Cardiovascular: Coronary stent HEENT: Tonsil/Adenoidectomy, Other - Present Medications Home Medications: Ambulatory Orders Medication Instructions Recorded Confirmed Atorvastatin Calcium 40 mg PO DAILY 09/28/17 01/05/23 Insulin Glargine,Hum.rec.anlog 50 unit SUBQ QDBREAKFAST 09/28/17 01/05/23 [Clarissa Todd] Metformin HCl [Metformin HCl ER] 2,000 mg PO QDDINNER 09/28/17 01/05/23 Insulin Aspart [NovoLOG] 5 - 20 unit SUBQ TIDWM 05/14/18 01/05/23 Apixaban [Eliquis] 2.5 mg PO DAILY 01/05/23 01/05/23 Clopidogrel [Plavix] 75 mg PO ONCE 01/05/23 01/05/23 Valsartan 160 mg PO DAILY 01/05/23 01/05/23 - Allergies Allergies/Adverse Reactions: Allergies Allergy/AdvReac Type Severity Reaction Status Date / Time codeine Allergy Unknown Verified 12/14/22 16:46 - Social History Does the pt smoke?: No Smoking Status: Never smoker Does the pt drink ETOH?: No Does the pt have substance abuse?: No - Immunizations Immunizations are current?: Yes - POLST Patient has POLST: No PD ED PE NORMAL - Vitals Vital signs reviewed: Yes - General General: Alert and oriented X 3, No acute distress, Well developed/nourished - HEENT HEENT: Atraumatic, PERRL, EOMI, Pharynx benign - Neck Neck: Supple, no meningeal sign, No adenopathy, No bruit - Cardiac Cardiac: No murmur. No: RRR (regular but bradycardic which he says has been true since noted at age 14. Has supervisor pipeline. ) - Respiratory Respiratory: Clear bilaterally - Abdomen Abdomen: Soft, Non tender - Derm Derm: Normal color, Warm and dry - Extremities Extremities: Normal ROM s pain, No edema, No calf tenderness / cord - Neuro Neuro: Alert and oriented X 3, barn hand 2-12 intact, No motor deficit, No sensory deficit, Normal speech, Other Eye Opening: Spontaneous Motor: Obeys Commands Verbal: Oriented GCS Score: 15 NIHSS - Level of Consciousness Level of consciousness: (0) Alert, Keenly responsive LOC Questions: (0) Answers both Q's correct LOC Commands: (0) Performs both correctly - Gaze Best Gaze: (0) Normal - Visual Visual: (0) No loss - Facial Palsy Facial Palsy: (0) Normal, symmetrical movement - Motor Arms (both separate) Motor Arm (right): (0) No drift Motor Arm (left): (0) No drift - Motor Legs (both separate) Motor Leg (right): (0) No drift Motor Leg (left): (0) No drift - Limb Ataxia Limb Ataxia: (0) Absent - Sensory Sensory: (0) Normal - Best Language Best Language: (0) No aphasia - Dysarthria Dysarthria: (0) Normal - Extinction and Inattention (formally neg Extinction and inattention: (0) No abnormality - Total Score/Results Total Score/Result: 0 Results - Vitals Vitals: Oxygen O2 Source Room air - Labs Labs: Laboratory Tests 01/05/23 01/05/23 01/05/23 10:11 10:11 10:11 WBC 7.2 RBC 4.63 L Hgb 14.6 Hct 44.6 MCV 96.3 H MCH 31.5 H MCHC 32.7 RDW 12.6 Plt Count 210 MPV 9.5 Neut # (Auto) 3.8 Lymph # (Auto) 2.2 Haines # (Auto) 0.6 Eos # (Auto) 0.5 Baso # (Auto) 0.1 Absolute Nucleated RBC 0.00 Nucleated RBC % 0.0 ESR 7 PT 12.9 H INR 1.2 Sodium Potassium Chloride Carbon Dioxide Anion Gap BUN Creatinine Estimated GFR (MDRD) Glucose Calcium Magnesium Total Bilirubin AST ALT Alkaline Phosphatase C-Reactive Protein Total Protein Albumin Globulin Albumin/Globulin Ratio Lipase 01/05/23 10:11 WBC RBC Hgb Hct MCV MCH MCHC RDW Plt Count MPV Neut # (Auto) Lymph # (Auto) Haines # (Auto) Eos # (Auto) Baso # (Auto) Absolute Nucleated RBC Nucleated RBC % ESR PT INR Sodium 141 Potassium 4.4 Chloride 106 Carbon Dioxide 31 Anion Gap 4.0 L BUN 13 Creatinine 1.0 Estimated GFR (MDRD) 72 L Glucose 193 H Calcium 9.4 Magnesium 1.7 Total Bilirubin 0.8 AST 13 ALT 10 Alkaline Phosphatase 70 C-Reactive Protein 0.6 Total Protein 6.7 Albumin 4.0 Globulin 2.7 Albumin/Globulin Ratio 1.5 Lipase 22 - Rads (name of study) head CT Relevant Findings:: Prelim report reviewed (no acute process. ), EMP independent interpretation of test brain MRI Relevant Findings:: Prelim report reviewed (no acute process. Small vessel ischemic changes chronic. ), EMP independent interpretation of test PD Medical Decision Making - ED course Complexity details: considered differential (just numbness without weakness right face and arm. Presume central cause. COuld also consider vasculitis. Labs are good however with normal ESR/CRP. Normal electrolyes. Head CT and MRI wihtout acute stroke. At this point will call it TIA. He is on plavix and DOAC, so no meds added. ), d/w patient, d/w family () Departure - Departure Disposition: 01 Home, Self Care Clinical Impression: Right arm and right face tingling Condition: Stable Record reviewed to determine appropriate education?: Yes Instructions: ED Transient Ischemic Attack Comments: Your basic blood tests are appear normal here. Your heart rate is slightly low in the upper 40s to 50s but your blood pressure is good. Your CT scan of the head and brain MRI did not show any acute abnormalities. No signs of bleeding, stroke, tumors, swelling. At this point presumption with your symptoms would be a TIA. You are already on antiplatelet agent clopidogrel and anticoagulant. Continue with those medications. Stay adequately hydrated. Continue your other usual medicines. Follow-up with your primary care and you could also update your supervisor pipeline. I think staying on the current medicines as main recommendation. Forms: PCP List Discharge Date/Time: 01/05/23 13:42
--- NOTE | 2023-01-05 10:05 | CT Report ---
PROCEDURE: HEAD WO INDICATIONS: right face/arm numbness this morning TECHNIQUE: Noncontrast 4.5 mm thick angled axial sections acquired from the foramen magnum to the vertex. For r adiation dose reduction, the following was used: automated exposure control, adjustment of mA and/or kV according to patient size. COMPARISON: T FINDINGS: Image quality: Excellent. CSF spaces: Basal cisterns are patent. No extra-axial fluid collections. Ventricles are normal in size and shape. Brain: No midline shift. No intracranial masses or hemorrhage. Archer-white matter interface is norm al. Subcortical and periventricular hypodensities are consistent with microvascular ischemic disease and age-related cerebral volume loss. Skull and face: Calvarium and visualized facial bones are intact, without suspicious lesions. Sinuses: Visualized sinuses and mastoids are clear. IMPRESSION: 1. No acute intracranial abnormality. 2. Microvascular ischemic disease and age-related cerebral volume loss. Reviewed by: Tucker Ricks on 01/05/2023 10:04 AM PDT Approved by: Tucker Ricks on 01/05/2023 10:04 AM PDT Station ID: [id number]
[2023-01-05 10:20] LABS: BASOPHILS # (AUTO) 0.1 10^3/uL (0.0-0.1); BASOPHILS % (AUTO) 0.8 %; EOSINOPHILS # (AUTO) 0.5 10^3/uL (0.0-0.7); EOSINOPHILS % (AUTO) 6.3 %; HCT - HEMATOCRIT 44.6 % (42.0-52.0); HGB - HEMOGLOBIN 14.6 g/dL (14.0-18.0); LYMPHOCYTES # (AUTO) 2.2 10^3/uL (1.5-3.5); LYMPHOCYTES % (AUTO) 30.8 %; MEAN CORPUSCULAR HEMOGLOBIN 31.5 pg (27.0-31.0); MEAN CORPUSCULAR HGB CONC 32.7 g/dL (32.0-36.0); MEAN CORPUSCULAR VOLUME 96.3 fL (80.0-94.0); MEAN PLATELET VOLUME 9.5 fL (7.4-11.4); MONOCYTES # (AUTO) 0.6 10^3/uL (0.0-1.0); MONOCYTES % (AUTO) 8.8 %; NEUTROPHILS # (AUTO) 3.8 10^3/uL (1.5-6.6); PLT - PLATELET COUNT 210 10^3/uL (130-450); RED BLOOD COUNT 4.63 10^6/uL (4.70-6.10); RED CELL DISTRIBUTION WIDTH 12.6 % (12.0-15.0); WHITE BLOOD COUNT 7.2 x10^3/uL (4.8-10.8)
[2023-01-05 10:29] LABS: INR 1.2 (0.8-1.2); PT - PROTHROMBIN TIME 12.9 secs (9.9-12.6)
[2023-01-05 10:33] LABS: ALBUMIN/GLOBULIN RATIO 1.5 (1.0-2.2); BILIRUBIN,TOTAL 0.8 mg/dL (0.2-1.0); CALCIUM 9.4 mg/dL (8.5-10.3); CRP - C-REACTIVE PROTEIN 0.6 mg/dL (<0.5); MAGNESIUM 1.7 mg/dL (1.7-2.3); POTASSIUM 4.4 mmol/L (3.5-4.5); TOTAL PROTEIN 6.7 g/dL (6.4-8.9)
[2023-01-05 12:38] VITALS: BP 173/72; O2SAT 98
--- NOTE | 2023-01-05 12:43 | MRI Report ---
PROCEDURE: BRAIN WO INDICATIONS: right face and arm numbness onset this morning TECHNIQUE: Noncontrast axial T1 spin echo, axial T2 fast spin echo, sagittal and axial FLAIR, coronal T2 fast sp in echo, axial gradient echo, axial diffusion and ADC through the brain. COMPARISON: None. FINDINGS: Image quality: Excellent. CSF Spaces: Basal cisterns are patent. No extra-axial fluid collections. Ventricles are normal in size and shape. Brain: No intracranial masses or hemorrhage. Archer/white matter interface is normal. Brainstem appe ars normal. Diffusion-weighted images demonstrate no acute ischemic insult. Subcortical and periven tricular hypodensities are consistent with microvascular ischemic disease and age-related cerebral vo lume loss. Normal intravascular flow voids are present. Skull and face: Calvarium has normal marrow signal. Orbits appear normal. Sinuses: Sinuses and mastoids are clear. IMPRESSION: 1. No acute intracranial abnormality. 2. No acute ischemia. 3. Small vessel ischemic changes. Reviewed by: Tucker Ricks on 01/05/2023 12:42 PM PDT Approved by: Tucker Ricks on 01/05/2023 12:42 PM PDT Station ID: [id number]
== END 2023-01-05 13:42 | disposition home or self-care (01) ==
LOC: EDUNIT# → ED 08:58
DX: R20.2 Paresthesia of skin (principal); I10 Essential (primary) hypertension; E78.00 Pure hypercholesterolemia, unspecified; I25.10 Atherosclerotic heart disease of native coronary artery without angina pectoris; Z79.4 Long term (current) use of insulin; Z79.84 Long term (current) use of oral hypoglycemic drugs; Z79.899 Other long term (current) drug therapy; Z79.01 Long term (current) use of anticoagulants; Z79.02 Long term (current) use of antithrombotics/antiplatelets
CPT/HCPCS: 36415; 80053; 83690; 83735; 85025; 85610; 85651; 86140; 99283; 99284

== ENCOUNTER 2023-02-10 08:00 | Outpatient (CLI) | payer MEDICARE, OTHER ==
--- NOTE | 2023-02-10 18:36 | XRAY Report ---
PROCEDURE: Wrist 3 View LT INDICATIONS: LEFT WRIST PAIN TECHNIQUE: 3 views of the wrist were acquired. COMPARISON: Left wrist radiograph on February 01, 2023. FINDINGS: Bones: Similar appearance of minimally displaced radial styloid fracture with intra-articular extens ion. Fracture plane remains conspicuous with no significant callus formation. Alignment is similar to the prior exam. No new fracture. No suspicious bony lesions. Degenerative changes of the first CMC j oint. Soft tissues: No suspicious soft tissue calcifications or masses. Vascular calcifications. No sign ificant soft tissue swelling. Metallic ring over the fourth proximal phalanx, partially visualized. P robable radiopaque foreign body in the volar soft tissue in the interspace of the second and third me tacarpals measuring 4 mm. IMPRESSION: 1. Similar appearance of mildly displaced radial styloid fracture with intra-articular extension. Sta ble alignment with no interval osseous healing. 2. Probable radiopaque foreign body in the volar soft tissue in the interspace of the second and thir d metacarpals measuring 4 mm. Correlate with physical exam. Reviewed by: Tong Galicia MD on 02/10/2023 6:35 PM PDT Approved by: Tong Galicia MD on 02/10/2023 6:35 PM PDT Station ID: [id number]
== END 2023-02-10 23:59 | disposition home or self-care (01) ==
LOC: DI.WOS 08:00
PROVIDERS: ATTEND Orthopaedic Surgery
DX: S52.512D Displaced fracture of left radial styloid process, subsequent encounter for closed fracture with routine healing (principal)

== ENCOUNTER 2023-03-09 08:00 | Outpatient (CLI) | payer MEDICARE, OTHER ==
--- NOTE | 2023-03-09 13:24 | XRAY Report ---
PROCEDURE: Wrist 3 View LT INDICATIONS: LEFT WRIST FRACTURE TECHNIQUE: 02/10/2023 views of the wrist were acquired. COMPARISON: None FINDINGS: Bones: Previously described radial styloid fracture shows appropriate bridging callus centrally. Mil d intra-articular linear lucency persists. Generalized decreased osseous mineralization present. An i ntra-articular arthritic changes noted Soft tissues: Small soft tissue foreign body noted in the volar chest soft tissues at the level of t he metacarpal heads, unchanged. Diffuse atherosclerotic small vessel vascular calcification. IMPRESSION: Healing intra-articular radial styloid fracture. Osteopenia. Stable soft tissue foreign body Reviewed by: Alexys Brown MD on 03/09/2023 12:22 PM AKST Approved by: Alexys Brown MD on 03/09/2023 12:22 PM AKST Station ID: [id number]
== END 2023-03-09 23:59 | disposition home or self-care (01) ==
LOC: DI.WOS 08:00
PROVIDERS: ATTEND Orthopaedic Surgery
DX: S52.515D Nondisplaced fracture of left radial styloid process, subsequent encounter for closed fracture with routine healing (principal); M85.832 Other specified disorders of bone density and structure, left forearm; M79.5 Residual foreign body in soft tissue

== ENCOUNTER 2023-08-03 14:59 | Emergency (ER) | payer MEDICARE, OTHER ==
[2023-08-03 15:27] LABS: RAPID STREP SCREEN Negative (Negative)
--- NOTE | 2023-08-03 17:06 | ED Physician Documentation ---
PD PEREZ HEENT - Stated complaint Stated Complaint: SORE THROAT - Chief complaint Chief Complaint: Heent - History obtained from History obtained from: Patient - Additional information Additional information: Patient is a 78-year-old male with a history of hypertension, diabetes presenting for evaluation of sore throat for 2 days. Reports a dry cough. No fevers. No congestion. Has been tolerating p.o. and had a soup for lunch which felt better. He was concerned about strep and presented to the ER. He did take a COVID test at home. Denies known sick contacts. No recent travel. Review of Systems Constitutional: denies: Fever Throat: reports: Sore throat Cardiac: denies: Chest pain / pressure Respiratory: denies: Dyspnea GI: denies: Abdominal Pain PD PAST MEDICAL HISTORY - Past Medical History Cardiovascular: Hypertension, High cholesterol, Coronary artery disease, Pulmonary embolism Endocrine/Autoimmune: Type 2 diabetes - Past Surgical History Past Surgical History: Yes Ortho: Rotator cuff repair, Other Cardiovascular: Coronary stent HEENT: Tonsil/Adenoidectomy, Other - Present Medications Home Medications: Ambulatory Orders Medication Instructions Recorded Confirmed Atorvastatin Calcium 40 mg PO DAILY 09/28/17 01/05/23 Insulin Glargine,Hum.rec.anlog 50 unit SUBQ QDBREAKFAST 09/28/17 01/05/23 [Toujeo Solostar] Metformin HCl [Metformin HCl ER] 2,000 mg PO QDDINNER 09/28/17 01/05/23 Insulin Aspart [NovoLOG] 5 - 20 unit SUBQ TIDWM 05/14/18 01/05/23 Apixaban [Eliquis] 2.5 mg PO DAILY 01/05/23 01/05/23 Clopidogrel [Plavix] 75 mg PO ONCE 01/05/23 01/05/23 Valsartan 160 mg PO DAILY 01/05/23 01/05/23 HYDROcod/ACETAM 5/325 [Walling 5/325] 1 - 2 tab PO Q6H PRN #15 tablet 02/01/23 - Allergies Allergies/Adverse Reactions: Allergies Allergy/AdvReac Type Severity Reaction Status Date / Time codeine Allergy Unknown Verified 08/03/23 15:14 - Social History Does the pt smoke?: No Smoking Status: Never smoker Does the pt drink ETOH?: No Does the pt have substance abuse?: No - Immunizations Immunizations are current?: Yes - POLST Patient has POLST: No PD ED PE NORMAL - General General: Alert and oriented X 3, No acute distress, Well developed/nourished - HEENT HEENT: Atraumatic, Moist mucous membranes, Pharynx benign (No oral swelling, erythema, exudate) - Neck Neck: Supple, no meningeal sign - Cardiac Cardiac: RRR, Strong equal pulses - Respiratory Respiratory: No respiratory distress, Clear bilaterally - Abdomen Abdomen: Normal bowel sounds, Soft, Non tender, Non distended - Derm Derm: Warm and dry - Neuro Neuro: Normal speech Results - Vitals Vitals: Vital Signs - 24 hr 08/03/23 08/03/23 15:10 17:09 Temperature 36.8 C Heart Rate 65 80 Respiratory 16 14 Rate Blood Pressure 168/80 H 138/84 H O2 Saturation 96 99 Oxygen O2 Source Room air - Labs Labs: Laboratory Tests 08/03/23 15:16 Group A Strep Rapid Negative PD Medical Decision Making - ED course Complexity details: reviewed results, d/w patient ED course: Patient with strep throat for 2 days. Vital signs are stable. No signs of oral swelling or deep space infection. Speech is normal. Reports home COVID test is negative. Rapid strep is negative. Tolerating p.o. Declines Decadron. Patient comfortable with continued supportive care and is advised on concerning symptoms to return for. Departure - Departure Disposition: 01 Home, Self Care Clinical Impression: Viral pharyngitis Condition: Stable Instructions: ED Pharyngitis Viral Comments: Your strep test is negative. We will send the swab for a culture and Notify you if it is positive. Continue with anti-inflammatories, hydration, rest. Return to the ER with any worsening. Forms: PCP List Discharge Date/Time: 08/03/23 17:09
[2023-08-03 17:11] VITALS: BP 138/84; O2SAT 99
== END 2023-08-03 17:09 | disposition home or self-care (01) ==
LOC: ED 14:59
DX: J02.8 Acute pharyngitis due to other specified organisms (principal); B97.89 Other viral agents as the cause of diseases classified elsewhere; I10 Essential (primary) hypertension; E11.9 Type 2 diabetes mellitus without complications; I25.10 Atherosclerotic heart disease of native coronary artery without angina pectoris; Z86.711 Personal history of pulmonary embolism; Z79.01 Long term (current) use of anticoagulants; Z79.4 Long term (current) use of insulin; Z79.02 Long term (current) use of antithrombotics/antiplatelets
CPT/HCPCS: 87070; 87430; 99283

== ENCOUNTER 2023-08-04 07:23 | Emergency (ER) | payer MEDICARE, OTHER ==
--- NOTE | 2023-08-04 08:03 | ED Physician Documentation ---
PD PEREZ HEENT - Stated complaint Stated Complaint: THROAT PX - Chief complaint Chief Complaint: Heent - History obtained from History obtained from: Patient - Additional information Additional information: Patient is a 78-year-old male presenting for evaluation of a sore throat that has been present for the last 3 days. He was seen yesterday and had a negative strep test. He declined Decadron and was only concerned about whether he had strep or not. However today he presents because he reports more discomfort overnight and feeling some thick phlegm in the back of his throat. He also feels like it is more painful to swallow this morning. He has not taken anything for pain since he was in the emergency department yesterday. He is tolerating his secretions. No fevers. No chest pain or shortness of air. He is an insulin-dependent diabetic and has a glucose monitor as well as using short and long-acting insulin. Review of Systems Constitutional: denies: Fever Nose: denies: Congestion Throat: reports: Sore throat Cardiac: denies: Chest pain / pressure Respiratory: denies: Dyspnea, Cough PD PAST MEDICAL HISTORY - Past Medical History Past Medical History: Yes Cardiovascular: Hypertension, High cholesterol, Coronary artery disease, Pulmonary embolism Respiratory: Sleep apnea Neuro: None Endocrine/Autoimmune: Type 2 diabetes GI: GERD : Benign prostate hypertrophy HEENT: None Psych: None Musculoskeletal: Scoliosis, Chronic back pain Derm: None - Past Surgical History Past Surgical History: Yes Ortho: Rotator cuff repair, Other Cardiovascular: Coronary stent HEENT: Cataracts, Tonsil/Adenoidectomy, Other - Present Medications Home Medications: Ambulatory Orders Medication Instructions Recorded Confirmed Insulin Glargine,Hum.rec.anlog 50 unit SUBQ QDBREAKFAST 09/28/17 08/04/23 [Clarissa Todd] Metformin HCl [Metformin HCl ER] 2,000 mg PO QDDINNER 09/28/17 08/04/23 Insulin Aspart [NovoLOG] 5 - 20 unit SUBQ TIDWM 05/14/18 08/04/23 Apixaban [Eliquis] 2.5 mg PO DAILY 01/05/23 08/04/23 Clopidogrel [Plavix] 75 mg PO ONCE 01/05/23 08/04/23 Valsartan 160 mg PO DAILY 01/05/23 08/04/23 Acetaminophen [Tylenol] 1 tab PO PRN PRN 08/04/23 08/04/23 Atorvastatin Calcium 1 tab PO DAILY 08/04/23 08/04/23 Empagliflozin [Jardiance] 1 tab PO DAILY 08/04/23 08/04/23 Nitroglycerin [Nitrostat] 1 tab ORAL PRN PRN 08/04/23 08/04/23 Tamsulosin [Flomax] 1 cap PO DAILY 08/04/23 08/04/23 - Allergies Allergies/Adverse Reactions: Allergies Allergy/AdvReac Type Severity Reaction Status Date / Time codeine Allergy Unknown Verified 08/04/23 07:27 - Social History Does the pt smoke?: No Smoking Status: Former smoker Does the pt drink ETOH?: No Does the pt have substance abuse?: No - Immunizations Immunizations are current?: Yes - POLST Patient has POLST: No PD ED PE NORMAL - General General: Alert and oriented X 3, No acute distress, Well developed/nourished - HEENT HEENT: Atraumatic, Moist mucous membranes, Pharynx benign (No oral swelling, erythema or exudate, no trismus) - Neck Neck: Supple, no meningeal sign - Cardiac Cardiac: RRR - Respiratory Respiratory: No respiratory distress, Clear bilaterally - Derm Derm: Warm and dry - Neuro Neuro: Normal speech Results - Vitals Vitals: Vital Signs - 24 hr 08/04/23 08/04/23 07:27 08:11 Temperature 36.2 C L Heart Rate 86 76 Respiratory 18 18 Rate Blood Pressure 176/76 H 142/86 H O2 Saturation 96 100 Oxygen O2 Source Room air - Labs Labs: Laboratory Tests 08/04/23 07:35 Nasal Adenovirus (PCR) NOT DETECTED Nasal B. parapertussis DNA (PCR) NOT DETECTED Nasal Coronavir 229E PCR NOT DETECTED Nasal Coronavir HKU1 PCR NOT DETECTED Nasal Coronavir NL63 PCR NOT DETECTED Nasal Coronavir OC43 PCR NOT DETECTED Nasal Enterovir/Rhinovir PCR NOT DETECTED Nasal Influenza B PCR NOT DETECTED Nasal Influenza A PCR NOT DETECTED Nasal Parainfluen 1 PCR NOT DETECTED Nasal Parainfluen 2 PCR DETECTED A Nasal Parainfluen 3 PCR NOT DETECTED Nasal Parainfluen 4 PCR NOT DETECTED Nasal RSV (PCR) NOT DETECTED Nasal B.pertussis DNA PCR NOT DETECTED Nasal C.pneumoniae (PCR) NOT DETECTED Tim Human Metapneumo PCR NOT DETECTED Nasal M.pneumoniae (PCR) NOT DETECTED Nasal SARS-CoV-2 (PCR) NOT DETECTED PD Medical Decision Making - ED course ED course: Patient with sore throat for past few days with worsening overnight. Had a negative rapid strep yesterday and culture is pending. Vital signs are stable. No signs of deep space infection or abscess on exam. Do not see a reason to repeat strep. Offered Decadron yesterday which patient declined but he is agreeable today. He does use insulin for his diabetes and does have short acting that he uses with meals and he is aware that his blood sugars may become more elevated after the dose of Decadron. Also discussed other options for continued supportive care. Respiratory swab was also obtained and is positive for parainfluenza strain. Patient advised on concerning symptoms to return for. Departure - Departure Disposition: 01 Home, Self Care Clinical Impression: Pharyngitis Condition: Stable Instructions: ED Pharyngitis Viral Comments: Your strep test yesterday was negative and your culture is pending. We have given you a dose of a long-acting steroid called Decadron which should help with the inflammation. Decadron may cause your blood sugars to be more elevated so please keep an eye on your glucose readings. Return to the ER if you develop any worsening symptoms such as vomiting. I would also recommend you use acetaminophen to help with pain and making sure you are staying hydrated. Salt water gargles can also be helpful to help with inflammation and discomfort. Mix 1/2 teaspoon of salt with a cup (8 ounces) of warm water and gargle. Do this whenever your throat feels itchy or painful. Your respiratory panel is pending. This will check for COVID, influenza, RSV and a number of other common cold viruses. We will notify you if it is positive for COVID. Otherwise you can check the patient portal for your results. You should quarantine from others until you know your COVID result. Please continue with acetaminophen or ibuprofen as needed for fevers and body aches, plenty of fluids/hydration and rest. Return to the ER with any worsening symptoms such as difficulty breathing or vomiting. Forms: PCP List Discharge Date/Time: 08/04/23 08:11
[2023-08-04] MEDS: DEXAMETHASONE 10 MG/ML VIAL PO STA (08:07)
[2023-08-04] MEDS: CHERRY SYRUP 10 ML UDC PO ONE (08:07)
[2023-08-04 08:17] VITALS: BP 142/86; O2SAT 100
[2023-08-04 08:34] LABS: B. PARAPERTUSSIS- RESP PCR PAN NOT DETECTED; B. PERTUSSIS- RESP PCR PANEL NOT DETECTED; C. PNEUMONIAE- RESP PCR PANEL NOT DETECTED; CORONAVIRUS 229E-RESP PCR NOT DETECTED; CORONAVIRUS HKU1-RESP PCR NOT DETECTED; CORONAVIRUS NL63-RESP PCR NOT DETECTED; CORONAVIRUS OC43-RESP PCR NOT DETECTED; HUMAN METAPNEUMOVIRUS NOT DETECTED; INFLUENZA A- RESP PCR PANEL NOT DETECTED; INFLUENZA B - RESP PCR PANEL NOT DETECTED; M. PNEUMONIAE- RESP PCR PANEL NOT DETECTED; PARAINFLUENZA VIRUS 1 NOT DETECTED; PARAINFLUENZA VIRUS 2 DETECTED; PARAINFLUENZA VIRUS 3 NOT DETECTED; PARAINFLUENZA VIRUS 4 NOT DETECTED; RHINOVIRUS/ENTEROVIRUS NOT DETECTED; RSV- RESP PCR PANEL NOT DETECTED; SARS-CoV-2 -RESP PCR PANEL NOT DETECTED
== END 2023-08-04 08:11 | disposition home or self-care (01) ==
LOC: ED 07:23
DX: J02.9 Acute pharyngitis, unspecified (principal); I10 Essential (primary) hypertension; E78.00 Pure hypercholesterolemia, unspecified; I25.10 Atherosclerotic heart disease of native coronary artery without angina pectoris; E11.9 Type 2 diabetes mellitus without complications; N40.0 Benign prostatic hyperplasia without lower urinary tract symptoms; Z86.711 Personal history of pulmonary embolism; Z79.4 Long term (current) use of insulin; Z79.84 Long term (current) use of oral hypoglycemic drugs; Z79.01 Long term (current) use of anticoagulants; Z79.02 Long term (current) use of antithrombotics/antiplatelets; Z79.899 Other long term (current) drug therapy
CPT/HCPCS: 87633; 99283; A9270; 87430

== ENCOUNTER 2023-11-04 21:03 | Emergency (ER) | payer MEDICARE, OTHER ==
[2023-11-04 21:13] VITALS: BP 180/88; O2SAT 96
--- NOTE | 2023-11-04 21:25 | ED Physician Documentation ---
PD HPI MAJOR TRAUMA - Stated complaint Stated Complaint: FALL/RIB PX - Chief complaint Chief Complaint: Trauma Ch/Bk - History obtained from History obtained from: Patient, Family - Additional information Additional information: 78-year-old gentleman on both Eliquis and Plavix had a trip and fall in his lawn today while chasing a runaway tire. He landed hitting his left side on the grass and feels like he broke some ribs. No other injuries. He is 100% confident that he did not hit his head or cole his head. He has no headache. No other significant injuries. Declines pain medication on initial evaluation. PD PAST MEDICAL HISTORY - Past Medical History Past Medical History: Yes Cardiovascular: Hypertension, High cholesterol, Coronary artery disease, Pulmonary embolism Respiratory: Sleep apnea Neuro: None Endocrine/Autoimmune: Type 2 diabetes GI: GERD : Benign prostate hypertrophy HEENT: None Psych: None Musculoskeletal: Scoliosis, Chronic back pain Derm: None - Past Surgical History Past Surgical History: Yes Ortho: Rotator cuff repair, Other Cardiovascular: Coronary stent HEENT: Cataracts, Tonsil/Adenoidectomy, Other - Present Medications Home Medications: Ambulatory Orders Medication Instructions Recorded Confirmed Insulin Glargine,Hum.rec.anlog 50 unit SUBQ QDBREAKFAST 09/28/17 08/04/23 [Clarissa Todd] Metformin HCl [Metformin HCl ER] 2,000 mg PO QDDINNER 09/28/17 08/04/23 Insulin Aspart [NovoLOG] 5 - 20 unit SUBQ TIDWM 05/14/18 08/04/23 Apixaban [Eliquis] 2.5 mg PO DAILY 01/05/23 08/04/23 Clopidogrel [Plavix] 75 mg PO ONCE 01/05/23 08/04/23 Valsartan 160 mg PO DAILY 01/05/23 08/04/23 Acetaminophen [Tylenol] 1 tab PO PRN PRN 08/04/23 08/04/23 Atorvastatin Calcium 1 tab PO DAILY 08/04/23 08/04/23 Empagliflozin [Jardiance] 1 tab PO DAILY 08/04/23 08/04/23 Nitroglycerin [Nitrostat] 1 tab ORAL PRN PRN 08/04/23 08/04/23 Tamsulosin [Flomax] 1 cap PO DAILY 08/04/23 08/04/23 Gabapentin [Neurontin] 300 mg PO TID #60 cap 11/04/23 Oxycodone HCl/Acetaminophen 1 - 2 each PO Q6H PRN #25 tablet 11/04/23 [Percocet 5-325 mg Tablet] - Allergies Allergies/Adverse Reactions: Allergies Allergy/AdvReac Type Severity Reaction Status Date / Time codeine Allergy Unknown Verified 11/04/23 21:07 - Social History Does the pt smoke?: No Smoking Status: Never smoker Does the pt drink ETOH?: No Does the pt have substance abuse?: No - Immunizations Immunizations are current?: Yes - POLST Patient has POLST: No PD ED PE NORMAL - Vitals Vital signs reviewed: Yes - General General: Alert and oriented X 3, No acute distress - HEENT HEENT: PERRL, EOMI - Neck Neck: Supple, no meningeal sign, No bony TTP - Cardiac Cardiac: RRR, No murmur - Respiratory Respiratory: No respiratory distress, Clear bilaterally - Abdomen Abdomen: Non tender - Back Back: No CVA TTP, Other (Focal tenderness about rib 9 in the anterior axillary line on the left without corresponding left upper quadrant tenderness.) - Neuro Neuro: Alert and oriented X 3, Normal speech Results - Vitals Vitals: Vital Signs - 24 hr 11/04/23 21:07 Temperature 36.6 C Heart Rate 83 Respiratory 16 Rate Blood Pressure 180/88 H O2 Saturation 96 Oxygen O2 Source Room air - Labs Labs: Laboratory Tests 11/04/23 11/04/23 11/04/23 21:48 21:48 21:48 WBC 8.5 RBC 4.66 L Hgb 14.7 Hct 45.5 MCV 97.6 H MCH 31.5 H MCHC 32.3 RDW 12.9 Plt Count 202 MPV 9.9 Neut # (Auto) 4.9 Lymph # (Auto) 2.4 [place] # (Auto) 0.7 Eos # (Auto) 0.4 Baso # (Auto) 0.1 Absolute Nucleated RBC 0.00 Nucleated RBC % 0.0 PT 11.7 INR 1.1 Sodium 142 Potassium 4.1 Chloride 106 Carbon Dioxide 31 Anion Gap 5.0 L BUN 17 Creatinine 1.1 Estimated GFR (MDRD) 65 L Glucose 243 H Calcium 9.9 Total Bilirubin 0.6 AST 14 ALT 11 Alkaline Phosphatase 77 Total Protein 6.6 Albumin 4.2 Globulin 2.4 Albumin/Globulin Ratio 1.8 PD Medical Decision Making - ED course ED course: Medically complex 78-year-old gentleman presents with a left chest wall injury from a fall. He is anticoagulated and is 100% sure he did not hit his head. Initially declined pain medication but eventually acquiesced after some position changes. CT of the chest showing third and fourth anterior rib fractures. I also see a posterior eighth rib fracture which was not mentioned by the radiologist. No flail chest or pneumothorax. He very much wanted to go home and Was administered a Percocet prepack to go, and incentive spirometer with teaching by the RT. CBC, CMP, and INR are unremarkable save modest hyperglycemia. Departure - Departure Disposition: Home, Self Care Clinical Impression: Fracture of rib Qualifiers: Encounter type: initial encounter Rib fracture type: multiple ribs Fracture type: closed Laterality: left Qualified Code(s): S22.42XA - Multiple fractures of ribs, left side, initial encounter for closed fracture Condition: Good Record reviewed to determine appropriate education?: Yes Instructions: ED Fx Rib Prescriptions: Gabapentin [Neurontin] 300 mg PO TID #60 cap Oxycodone HCl/Acetaminophen [Percocet 5-325 mg Tablet] 1 - 2 each PO Q6H PRN #25 tablet PRN Reason: pain Comments: [facility] [place]. Would recommend you follow-up with your primary care physician in approximately a week or so to assess your healing. In addition to the prescription pain medications recommend you take Tylenol, 2 regular strength tablets every 6 hours for pain. Avoid NSAIDs as they are contraindicated with your other medications. Return for new or worsening symptoms. I am prescribing a short course of narcotic pain medication for you. These are potentially dangerous and addictive medications that should be used carefully. These medications may constipate you. Take an jokj-rra-[id number] stool softener (docusate) twice daily with plenty of water while taking these medications. If you go 24 hours without a bowel movement, take [id number] miralax, per package instructions. Do not drink or drive while taking these medications. If you received narcotic or sedating medications while in the emergency department, do not drive for 24 hours. Store this medication in a safe, secure place and out of reach of children. It is a violation of federal law to give or sell this medication to another person or to use in a manner other than prescribed. The ED will not refill narcotic prescriptions, including prescriptions lost or stolen. To dispose of unwanted medications: 1. [facility] provides a drop box for medication in pill form only (no liquids) 8:00 am to 4:30 p.m. Thursday-Thursday in the lobby of the [facility], [address] [place] [address]. Empty pills into ziplock bag before disposal. Call [phone] for information. 2.[employer] is a free service available to all [facility] residents. Go to [email or web address] Note that many narcotic pain relievers also contain Tylenol/acetaminophen. Please ensure that your total dose of acetaminophen from all sources does not exceed 3 g (3000 mg) per day. Forms: PCP List Discharge Date/Time: 11/04/23 22:42
--- NOTE | 2023-11-04 22:08 | CT Report ---
PROCEDURE: Chest WO INDICATIONS: left rib inj TECHNIQUE: A CT scan of the chest was performed. Intravenous contrast media was not administered. Images were re corded and evaluated at appropriate window settings. Reformats: axial MIP of the chest, coronal and s agittal. For radiation dose reduction, the following was used: automated exposure control, adjustment of mA and/or kV according to patient size. COMPARISON: None. FINDINGS: Image quality: Diagnostic. Chest wall and lower neck: No thyroid nodule which requires sonographic follow up. No axillary or sup raclavicular adenopathy by size. Lungs and pleura: No consolidation. No pleural effusions. No pneumothorax. No suspicious pulmonary n odules which require follow up. Mediastinum: Heart size is enlarged. No pericardial effusion. No large vessel abnormality. No mediast inal adenopathy by size criteria. Bones: Nondisplaced left lateral fourth and minimally displaced left lateral fifth rib fractures. Upper Abdomen: Unremarkable. IMPRESSION: Nondisplaced/minimally displaced left lateral fourth and fifth rib fractures. Reviewed by: Shelly Guadarrama MD on 11/04/2023 10:07 PM PDT Approved by: Shelly Guadarrama MD on 11/04/2023 10:07 PM PDT Station ID: [id number]
[2023-11-04] MEDS ORDERED: HYDROmorphone 1 MG/ML CARPUJECT ONE (22:12)
[2023-11-04] MEDS: HYDROmorphone 1 MG/ML CARPUJECT IVP STA (22:13)
[2023-11-04 22:14] LABS: BASOPHILS # (AUTO) 0.1 10^3/uL (0.0-0.1); BASOPHILS % (AUTO) 0.6 %; EOSINOPHILS # (AUTO) 0.4 10^3/uL (0.0-0.7); EOSINOPHILS % (AUTO) 4.4 %; HCT - HEMATOCRIT 45.5 % (42.0-52.0); HGB - HEMOGLOBIN 14.7 g/dL (14.0-18.0); LYMPHOCYTES # (AUTO) 2.4 10^3/uL (1.5-3.5); LYMPHOCYTES % (AUTO) 28.7 %; MEAN CORPUSCULAR HEMOGLOBIN 31.5 pg (27.0-31.0); MEAN CORPUSCULAR HGB CONC 32.3 g/dL (32.0-36.0); MEAN CORPUSCULAR VOLUME 97.6 fL (80.0-94.0); MEAN PLATELET VOLUME 9.9 fL (7.4-11.4); MONOCYTES # (AUTO) 0.7 10^3/uL (0.0-1.0); MONOCYTES % (AUTO) 8.6 %; NEUTROPHILS # (AUTO) 4.9 10^3/uL (1.5-6.6); NEUTROPHILS % (AUTO) 57.3 %; PLT - PLATELET COUNT 202 10^3/uL (130-450); RED BLOOD COUNT 4.66 10^6/uL (4.70-6.10); RED CELL DISTRIBUTION WIDTH 12.9 % (12.0-15.0); WHITE BLOOD COUNT 8.5 x10^3/uL (4.8-10.8)
[2023-11-04 22:20] LABS: INR 1.1 (0.8-1.2); PT - PROTHROMBIN TIME 11.7 secs (9.9-12.6)
[2023-11-04 22:31] LABS: ALBUMIN 4.2 g/dL (3.2-5.5); ALBUMIN/GLOBULIN RATIO 1.8 (1.0-2.2); BILIRUBIN,TOTAL 0.6 mg/dL (0.2-1.0); CALCIUM 9.9 mg/dL (8.5-10.3); CREATININE 1.1 mg/dL (0.6-1.3); POTASSIUM 4.1 mmol/L (3.5-4.5); TOTAL PROTEIN 6.6 g/dL (6.4-8.9)
[2023-11-04] MEDS: oxyCODONE/ACET 5/325 Prepack 4 PO STA (22:36)
== END 2023-11-04 22:42 | disposition home or self-care (01) ==
LOC: ED 21:03
DX: S22.42XA Multiple fractures of ribs, left side, initial encounter for closed fracture (principal); W01.0XXA Fall on same level from slipping, tripping and stumbling without subsequent striking against object, initial encounter; I10 Essential (primary) hypertension; E78.00 Pure hypercholesterolemia, unspecified; I25.10 Atherosclerotic heart disease of native coronary artery without angina pectoris; E11.9 Type 2 diabetes mellitus without complications; N40.0 Benign prostatic hyperplasia without lower urinary tract symptoms; Z86.711 Personal history of pulmonary embolism; Z79.01 Long term (current) use of anticoagulants; Z79.02 Long term (current) use of antithrombotics/antiplatelets; Z79.4 Long term (current) use of insulin; Z79.84 Long term (current) use of oral hypoglycemic drugs; Z79.899 Other long term (current) drug therapy
CPT/HCPCS: 36415; 71250; 80053; 85025; 85610; 96374; 99284; J1170

== ENCOUNTER 2023-11-25 16:15 | Outpatient (CLI) | payer MEDICARE, OTHER ==
--- NOTE | 2023-11-25 20:08 | XRAY Report ---
PROCEDURE: Shoulder 2+V LT INDICATIONS: PAIN IN LEFT SHOULDER TECHNIQUE: 4 views of the shoulder were acquired. COMPARISON: CT chest 11/04/2023. FINDINGS: Bones: No acute fractures or dislocations. Prior left sided rib fractures are again seen. No suspici ous bony lesions. Visualized ribs appear intact. Soft tissues: No suspicious soft tissue calcifications. The visualized lungs are within normal limi ts. IMPRESSION: No acute bony abnormality of the left shoulder identified. Prior left-sided rib fractures are again seen. Reviewed by: Rony Reyes MD on 11/25/2023 8:07 PM PDT Approved by: Rony Reyes MD on 11/25/2023 8:07 PM PDT Station ID: [id number]
== END 2023-11-25 16:16 | disposition home or self-care (01) ==
LOC: DI 16:15
PROVIDERS: ATTEND Orthopaedic Surgery
DX: M25.512 Pain in left shoulder (principal); S22.42XD Multiple fractures of ribs, left side, subsequent encounter for fracture with routine healing